=== PATIENT | male | born 1935 | race Hispanic/Latino ===

== ENCOUNTER 2018-02-09 12:16 | Inpatient (IN) | payer MEDICARE ==
[~2018-02-09] VITALS: Ht 167.6 cm; Wt 64.4 kg
[~2018-02-09 12:16] MED LIST: ACET-48 PO; GABA-531 PO; INSREG SQ; INSU100V12 SQ; LABE100T5 PO; LOVA20TA3 PO; QUIN5TAB12 PO; TRAM50TA4 PO
[2018-02-09] MEDS ORDERED: SODIUM CHLORIDE 0.9% 1000ML 1,000 ML IV ONE ×3 (13:22→17:16)
[2018-02-09] MEDS ORDERED: ONDANSETRON HCL 4 MG/2 ML VIAL ONE (13:22)
[2018-02-09] MEDS ORDERED: MORPHINE SULFATE 4 MG/1ML SYG ONE (13:22)
[2018-02-09 13:24] LABS: BASOPHILS % (AUTO) 1.1 % (0.0-5.0); HEMATOCRIT 31.4 % (42-54); LYMPHOCYTES % (AUTO) 5.5 % (21.0-51.0); MEAN CORPUSCULAR HEMOGLOBIN 30.1 pg (27.0-33.0); MEAN CORPUSCULAR HGB CONC 34.2 g/dL (32.0-36.0); MONOCYTES % (AUTO) 7.3 % (3.0-13.0); NEUTROPHILS % (AUTO) 86.1 % (40.0-77.0); PLATELET COUNT (AUTO) 290 K/uL (130-400); RED BLOOD CELL COUNT(AUTO) 3.57 MIL/uL (4.50-6.20); RED CELL DISTRIBUTION WIDTH 12.9 % (11.0-15.5); WHITE BLOOD COUNT (AUTO) 22.7 K/uL (4.8-10.8)
[2018-02-09 13:40] LABS: CREATININE 1.9 mg/dL (0.5-1.5)
[2018-02-09 13:44] LABS: BILIRUBIN,TOTAL 1.5 mg/dL (0.2-1.0); TOTAL PROTEIN, SERUM 6.6 g/dL (6.0-8.3)
[2018-02-09 15:09] LABS: BILIRUBIN,URINE Negative (NEGATIVE); COLOR,URINE Yellow (YELLOW); GLUCOSE, URINE (UA) 500 mg/dL (NEGATIVE); KETONES,URINE Trace mg/dL (NEGATIVE); LEUKOCYTE ESTERASE ,URINE Negative (NEGATIVE); NITRATE,URINE Negative (NEGATIVE); OCCULT BLOOD,URINE Trace (NEGATIVE); PROTEIN,URINE 300 (NEGATIVE)
[2018-02-09 15:10] LABS: APPEARANCE,URINE SLIGHTLY CLOUDY (CLEAR)
[2018-02-09] MEDS ORDERED: LEVOFLOXACIN 500 MG/D5W 100 ML 100 ML ONE (15:14)
[2018-02-09 15:20] LABS: WBC,URINE 0-1 /HPF (0-1)
[2018-02-09 15:21] LABS: SQUAMOUS EPITHELIAL CELL,UR Rare /HPF (0-2)
[2018-02-09 15:22] LABS: AMORPHOUS SEDIMENT,UR Few /LPF (None Seen); BACTERIA,URINE Moderate /HPF (None Seen)
[2018-02-09] MEDS: SODIUM CHLORIDE 0.9% 1000ML 1,000 ML IV SCH (15:57)
[2018-02-09] MEDS ORDERED: MORPHINE SULFATE 2 MG/ML 1ML SYG IV PRN (16:00)
[2018-02-09] MEDS ORDERED: LACTULOSE 20 GM/30 ML UDCUP PO PRN (16:00)
[2018-02-09] MEDS ORDERED: ONDANSETRON HCL 4 MG/2 ML VIAL IV PRN (16:00)
[2018-02-09] MEDS ORDERED: MAG HYDROX/AL HYDROX/SIMETH ES 30 ML SUSP UDCUP PO PRN (16:00)
[2018-02-09] MEDS ORDERED: ACETAMINOPHEN 325 MG TAB PO PRN (16:00)
[2018-02-09] MEDS ORDERED: ZOLPIDEM TARTRATE 5 MG TAB PO PRN (16:00)
[2018-02-09 17:09] LABS: HEMOGLOBIN A1C 7.7 % (4.0-6.0)
[2018-02-09 17:20] LABS: CREATINE KINASE, TOTAL 118 U/L (21-232); MYOGLOBIN 340 ng/mL (10-92); THYROID STIMULATING HORMONE 0.75 uIU/mL (0.36-3.74); TROPONIN I < 0.04 ng/mL (0.00-0.06)
[2018-02-09 17:29] LABS: % IRON SATURATION 7.9 % (30-44)
[2018-02-09 17:44] LABS: AMMONIA < 3 umol/L (11-32)
[2018-02-09 20:35] VITALS: BP 156/80
[2018-02-09] MEDS ORDERED: GLUCAGON 1MG KIT 1 MG ML IM PRN (21:45)
[2018-02-09] MEDS ORDERED: DEXTROSE 50%-WATER 50 ML DISP.SYRIN IV PRN (21:45)
[2018-02-09] MEDS: ZOSYN 3.375GM+NS 50ML 50 ML IV SCH (23:09)
[2018-02-09] MEDS ORDERED: PYRI50TA9 PO (23:35)
[2018-02-09] MEDS ORDERED: TAMS0.4C32 PO (23:35)
[2018-02-09] MEDS ORDERED: DULO30CA51 PO (23:36)
[2018-02-09] MEDS ORDERED: IBUP-2353 PO (23:41)
[2018-02-09] MEDS ORDERED: MELATONIN PO (23:43)
[2018-02-09] MEDS ORDERED: HYDROMORPHONE HCL 0.5 MG/0.5 ML ML IVP ONE (23:45)
[2018-02-09] MEDS ORDERED: HYDROMORPHONE 1 MG/1 ML AMP ONE (23:45)
[2018-02-10] VITALS (7 sets, daily range): BP systolic 130–186; BP diastolic 66–79
[2018-02-10 01:10] LABS: TROPONIN I 0.05 ng/mL (0.00-0.06)
[2018-02-10] MEDS: SODIUM CHLORIDE 0.9% 1000ML 1,000 ML IV SCH ×3 (02:50→19:11)
[2018-02-10 04:15] LABS: EOSINOPHILS % (AUTO) 0.2 % (0.0-8.0); HEMATOCRIT 26.9 % (42-54); LYMPHOCYTES % (AUTO) 11.2 % (21.0-51.0); MEAN CORPUSCULAR HEMOGLOBIN 30.6 pg (27.0-33.0); MEAN CORPUSCULAR HGB CONC 34.9 g/dL (32.0-36.0); MEAN CORPUSCULAR VOLUME 87.6 fL (79-99); NEUTROPHILS % (AUTO) 77.6 % (40.0-77.0); PLATELET COUNT (AUTO) 245 K/uL (130-400); RED BLOOD CELL COUNT(AUTO) 3.07 MIL/uL (4.50-6.20); RED CELL DISTRIBUTION WIDTH 13.1 % (11.0-15.5); WHITE BLOOD COUNT (AUTO) 20.8 K/uL (4.8-10.8)
[2018-02-10 04:25] LABS: INR 1.01 (0.85-1.15); PARTIAL THROMBOPLASTIN TIME 36.4 SEC (26.3-35.5); PROTHROMBIN TIME 10.6 SEC (9.6-11.6)
[2018-02-10 04:27] LABS: ALBUMIN 2.3 g/dL (3.5-5.0); CREATININE 1.5 mg/dL (0.5-1.5); MAGNESIUM 1.5 mg/dL (1.80-2.40); POTASSIUM 3.5 mmol/L (3.5-5.1); TOTAL PROTEIN, SERUM 5.5 g/dL (6.0-8.3)
[2018-02-10] MEDS: ZOSYN 3.375GM+NS 50ML 50 ML IV SCH ×3 (05:20→22:56)
[2018-02-10] MEDS: INSULIN HUMULIN R 100 UNIT/ML 3ML SQ SCH ×4 (05:56→21:48)
[2018-02-10 08:32] LABS: TROPONIN I 0.06 ng/mL (0.00-0.06)
[2018-02-10] MEDS: PANTOPRAZOLE SODIUM 40 MG TABLET.DR PO SCH (08:38)
[2018-02-10] MEDS: ENOXAPARIN SODIUM 40 MG/0.4 ML SYRINGE SQ SCH (08:39)
[2018-02-10] MEDS ORDERED: SODIUM CHLORIDE 0.9% 50 ML IV ONE (12:05)
[2018-02-10] MEDS ORDERED: MAGNESIUM 4GM PREMIX 100ML 100 ML IV ONE (16:45)
[2018-02-10] MEDS: TAMSULOSIN HCL 0.4 MG CAP.ER.24H PO SCH (17:18)
[2018-02-10] MEDS ORDERED: IRON SUCROSE COMPLEX 100 MG in SODIUM CHLORIDE 0.9% 50 ML IV SCH (17:30)
[2018-02-10] MEDS ORDERED: COMPOUND IV MISC 1 EACH IVSOLN MISC PRN (17:45)
[2018-02-10] MEDS ORDERED: TRAMADOL HCL 50 MG TABLET PO PRN (17:45)
[2018-02-10] MEDS: HYDRALAZINE HCL 20 MG/ML VIAL IV PRN (22:56)
[2018-02-11] VITALS (26 sets, daily range): BP systolic 122–180; BP diastolic 47–93
[2018-02-11] MEDS: SODIUM CHLORIDE 0.9% 1000ML 1,000 ML IV SCH ×4 (02:58→19:39)
[2018-02-11 04:37] LABS: HEMATOCRIT 26.9 % (42-54); MEAN CORPUSCULAR HGB CONC 34.1 g/dL (32.0-36.0); PLATELET COUNT (AUTO) 280 K/uL (130-400); RED BLOOD CELL COUNT(AUTO) 3.05 MIL/uL (4.50-6.20); RED CELL DISTRIBUTION WIDTH 13.2 % (11.0-15.5); WHITE BLOOD COUNT (AUTO) 14.4 K/uL (4.8-10.8)
[2018-02-11 04:40] LABS: CREATININE 1.5 mg/dL (0.5-1.5); MAGNESIUM 2.4 mg/dL (1.80-2.40); POTASSIUM 3.5 mmol/L (3.5-5.1)
[2018-02-11] MEDS: ZOSYN 3.375GM+NS 50ML 50 ML IV SCH ×2 (05:22→13:44)
[2018-02-11] MEDS: HYDRALAZINE HCL 20 MG/ML VIAL IV PRN (05:39)
[2018-02-11] MEDS: INSULIN HUMULIN R 100 UNIT/ML 3ML SQ SCH ×4 (05:41→20:15)
[2018-02-11] MEDS ORDERED: KETOROLAC TROMETHAMINE 30MG/ML ONE (05:50)
[2018-02-11] MEDS ORDERED: NEOSTIGMINE 5MG/5ML SYR IV ONE (06:32)
[2018-02-11] MEDS ORDERED: ONDANSETRON HCL 4 MG/2 ML VIAL ONE (06:32)
[2018-02-11] MEDS ORDERED: MIDAZOLAM HCL 1 MG/ML 2ML VIAL ONE (06:32)
[2018-02-11] MEDS ORDERED: DEXAMETHASONE SOD PHOSPHATE 10MG/ML 1ML VIAL ONE (06:32)
[2018-02-11] MEDS ORDERED: LIDOCAINE PF 2% 5ML ABBOJECT ONE (06:32)
[2018-02-11] MEDS ORDERED: PROPOFOL 10 MG/ML 20ML VIAL IV ONE (06:32)
[2018-02-11] MEDS ORDERED: ROCURONIUM 10MG/1ML SYR 10 MG/ML ML ONE (06:33)
[2018-02-11] MEDS ORDERED: FENTANYL CITRATE PF 50 MCG/1 ML 2ML VIAL ONE (06:33)
[2018-02-11] MEDS ORDERED: EPHEDRINE SULFATE 50 MG/ML AMPULE ONE (06:34)
[2018-02-11] MEDS ORDERED: GLYCOPYRROLATE 1 MG/5 ML SYRINGE ONE (06:34)
[2018-02-11] MEDS ORDERED: ROPIVACAINE 0.5% 5MG/ML 30ML IJ ONE (06:43)
[2018-02-11] MEDS ORDERED: DURAMORPH PF1 MG/ML 10ML AMP IV ONE (07:45)
[2018-02-11] MEDS ORDERED: BUPIVACAINE/EPI/PF 0.5% 30ML VIAL IJ ONE (07:45)
[2018-02-11] MEDS ORDERED: NEOMY SULF/POLYMYXIN B SULFATE 1 ML AMPUL IR ONE (07:45)
[2018-02-11] MEDS ORDERED: FERROUS FUMARATE 324 MG TABLET PO PRN (08:30)
[2018-02-11] MEDS ORDERED: KETOROLAC TROMETHAMINE 15MG/ML IV PRN (08:30)
[2018-02-11] MEDS ORDERED: LIDOCAINE HCL-MPF 1% 2ML VIAL IVP PRN (08:30)
[2018-02-11] MEDS ORDERED: DIPHENHYDRAMINE HCL 25 MG CAPSULE PO PRN (08:30)
[2018-02-11] MEDS ORDERED: POTASSIUM CHLORIDE 10% ELIXIR 20 MEQ/15 ML UDCUP PO PRN (08:30)
[2018-02-11] MEDS ORDERED: DiphenhydrAMINE HCL 50 MG/ML VIAL IVP PRN (08:30)
[2018-02-11] MEDS ORDERED: POTASSIUM CHLORIDE 20 MEQ ERTAB PO PRN (08:30)
[2018-02-11] MEDS ORDERED: OXYCODONE HCL 5 MG TAB PO PRN (08:30)
[2018-02-11] MEDS: ACETAMINOPHEN EXTRA STRENGTH 500 MG TABLET PO SCH ×3 (08:30→23:40)
[2018-02-11] MEDS ORDERED: POTASSIUM CHLORIDE 20MEQ/100ML 100 ML IV PRN (08:30)
[2018-02-11] MEDS ORDERED: MEPERIDINE-PF 25 MG/ML SYG ONE (08:55)
[2018-02-11] MEDS: ENOXAPARIN SODIUM 40 MG/0.4 ML SYRINGE SQ SCH (09:00)
[2018-02-11] MEDS: TAMSULOSIN HCL 0.4 MG CAP.ER.24H PO SCH (09:00)
[2018-02-11] MEDS: PANTOPRAZOLE SODIUM 40 MG TABLET.DR PO SCH (09:00)
[2018-02-11] MEDS: PSYLLIUM SEED 1 EACH PACKET PO SCH (11:40)
[2018-02-11] MEDS: DEXTROSE IV SCH ×2 (13:43→23:02)
[2018-02-11] MEDS: CEFAZOLIN 3 GM IV SCH ×2 (13:43→23:02)
[2018-02-11] MEDS ORDERED: ACETAMINOPHEN EXTRA STRENGTH 500 MG TABLET PO PRN (14:45)
[2018-02-11] MEDS ORDERED: IBUPROFEN 200 MG TAB PO PRN (14:45)
[2018-02-11] MEDS: UNASYN 1.5GM+NS 100ML 100 ML IV SCH ×2 (17:22→23:35)
[2018-02-11] MEDS ORDERED: CEFTRIAXONE SODIUM 2 GM VIAL IVP SCH (17:45)
[2018-02-11] MEDS: IRON SUCROSE COMPLEX 100 MG in SODIUM CHLORIDE 0.9% 50 ML IV SCH (19:39)
[2018-02-11] MEDS: MELATONIN PO SCH (19:39)
[2018-02-11] MEDS: LABETALOL HCL 100 MG TABLET PO SCH (19:40)
[2018-02-11] MEDS: OXYCODONE HCL 5 MG TAB PO PRN ×2 (19:40→23:40)
[2018-02-11] MEDS: INSULIN GLARGINE 100 UNITS/ML 10 ML VIAL SQ SCH (20:16)
[2018-02-12] MEDS: SODIUM CHLORIDE 0.9% 1000ML 1,000 ML IV SCH (03:29)
[2018-02-12 03:32] VITALS: BP 125/51
[2018-02-12 04:23] LABS: HEMATOCRIT 22.4 % (42-54); MEAN CORPUSCULAR HEMOGLOBIN 29.8 pg (27.0-33.0); MEAN CORPUSCULAR VOLUME 87.8 fL (79-99); PLATELET COUNT (AUTO) 228 K/uL (130-400); RED BLOOD CELL COUNT(AUTO) 2.56 MIL/uL (4.50-6.20); RED CELL DISTRIBUTION WIDTH 13.2 % (11.0-15.5); WHITE BLOOD COUNT (AUTO) 18.6 K/uL (4.8-10.8)
[2018-02-12 04:31] LABS: CREATININE 1.7 mg/dL (0.5-1.5); CRP QUANTITATIVE 59.8 mg/L (0.00-9.0); POTASSIUM 3.5 mmol/L (3.5-5.1)
[2018-02-12] MEDS: UNASYN 1.5GM+NS 100ML 100 ML IV SCH ×2 (05:21→12:16)
[2018-02-12] MEDS: INSULIN HUMULIN R 100 UNIT/ML 3ML SQ SCH ×4 (05:21→21:00)
[2018-02-12 07:30] VITALS: BP 140/58
[2018-02-12] MEDS: ACETAMINOPHEN EXTRA STRENGTH 500 MG TABLET PO SCH ×2 (09:00→15:46)
[2018-02-12] MEDS ORDERED: CEFTRIAXONE SODIUM 2 GM VIAL IVP SCH (09:00)
[2018-02-12] MEDS: LISINOPRIL 5 MG TABLET PO SCH (09:01)
[2018-02-12] MEDS: IRON SUCROSE COMPLEX 100 MG in SODIUM CHLORIDE 0.9% 50 ML IV SCH (09:01)
[2018-02-12] MEDS: PYRIDOXINE HCL 50 MG TABLET PO SCH (09:02)
[2018-02-12] MEDS: LABETALOL HCL 100 MG TABLET PO SCH ×2 (09:02→21:30)
[2018-02-12] MEDS: CALCIUM CARBONATE 500 MG TABLET PO PRN ×2 (09:02→21:40)
[2018-02-12] MEDS: DULOXETINE HCL 30 MG CAP PO SCH (09:02)
[2018-02-12] MEDS: PANTOPRAZOLE SODIUM 40 MG TABLET.DR PO SCH (09:02)
[2018-02-12] MEDS: TRAMADOL HCL 50 MG TABLET PO SCH (09:03)
[2018-02-12] MEDS: ENOXAPARIN SODIUM 40 MG/0.4 ML SYRINGE SQ SCH (09:03)
[2018-02-12] MEDS: TAMSULOSIN HCL 0.4 MG CAP.ER.24H PO SCH (09:03)
[2018-02-12] MEDS ORDERED: POTASSIUM CHLORIDE 20 MEQ ERTAB PO SCH (10:00)
[2018-02-12 12:00] VITALS: BP 125/56
[2018-02-12] MEDS ORDERED: SODIUM CHLORIDE 0.9% 250 ML IV ONE (12:06)
[2018-02-12] MEDS: PSYLLIUM SEED 1 EACH PACKET PO SCH (12:17)
[2018-02-12] MEDS: AMOXICILLIN 500 MG CAPSULE PO SCH ×2 (13:16→21:29)
[2018-02-12 16:17] VITALS: BP 113/61
[2018-02-12 19:00] VITALS: BP 128/55
[2018-02-12] MEDS: MELATONIN PO SCH (21:00)
[2018-02-12] MEDS: INSULIN GLARGINE 100 UNITS/ML 10 ML VIAL SQ SCH (21:40)
[2018-02-12 23:05] VITALS: BP 123/63
[2018-02-13] MEDS: ACETAMINOPHEN EXTRA STRENGTH 500 MG TABLET PO SCH ×3 (00:22→17:09)
[2018-02-13 03:00] VITALS: BP 137/61
[2018-02-13] MEDS: AMOXICILLIN 500 MG CAPSULE PO SCH ×2 (04:58→12:14)
[2018-02-13] MEDS: INSULIN HUMULIN R 100 UNIT/ML 3ML SQ SCH ×3 (05:36→16:30)
[2018-02-13 06:07] LABS: BASOPHILS % (AUTO) 1.2 % (0.0-5.0); EOSINOPHILS % (AUTO) 2.5 % (0.0-8.0); HEMATOCRIT 26.5 % (42-54); LYMPHOCYTES % (AUTO) 11.5 % (21.0-51.0); MEAN CORPUSCULAR HEMOGLOBIN 29.7 pg (27.0-33.0); MEAN CORPUSCULAR HGB CONC 33.9 g/dL (32.0-36.0); MEAN CORPUSCULAR VOLUME 87.6 fL (79-99); NEUTROPHILS % (AUTO) 77.8 % (40.0-77.0); PLATELET COUNT (AUTO) 229 K/uL (130-400); RED BLOOD CELL COUNT(AUTO) 3.03 MIL/uL (4.50-6.20); RED CELL DISTRIBUTION WIDTH 13.7 % (11.0-15.5); WHITE BLOOD COUNT (AUTO) 14.2 K/uL (4.8-10.8)
[2018-02-13 06:13] LABS: CREATININE 1.6 mg/dL (0.5-1.5); POTASSIUM 3.7 mmol/L (3.5-5.1)
[2018-02-13 07:46] VITALS: BP 130/63
[2018-02-13] MEDS ORDERED: BISACODYL 5 MG TABLET.DR PO PRN (08:30)
[2018-02-13] MEDS: LISINOPRIL 5 MG TABLET PO SCH (08:52)
[2018-02-13] MEDS: TAMSULOSIN HCL 0.4 MG CAP.ER.24H PO SCH (08:52)
[2018-02-13] MEDS: PYRIDOXINE HCL 50 MG TABLET PO SCH (08:52)
[2018-02-13] MEDS: DULOXETINE HCL 30 MG CAP PO SCH (08:52)
[2018-02-13] MEDS: PANTOPRAZOLE SODIUM 40 MG TABLET.DR PO SCH (08:52)
[2018-02-13] MEDS: TRAMADOL HCL 50 MG TABLET PO SCH (08:52)
[2018-02-13] MEDS: LABETALOL HCL 100 MG TABLET PO SCH (08:52)
[2018-02-13] MEDS: CALCIUM CARBONATE 500 MG TABLET PO PRN (08:53)
[2018-02-13] MEDS: ENOXAPARIN SODIUM 40 MG/0.4 ML SYRINGE SQ SCH (08:54)
[2018-02-13] MEDS: OXYCODONE HCL 5 MG TAB PO PRN (10:14)
[2018-02-13 11:38] VITALS: BP 130/55
[2018-02-13] MEDS: PSYLLIUM SEED 1 EACH PACKET PO SCH (12:14)
[2018-02-13 16:21] VITALS: BP 140/62
[2018-02-14] MEDS ORDERED: BISACODYL 10 MG SUPP.RECT RC PRN (08:30)
== END 2018-02-13 22:39 | DRG 480 ==
LOC: EDH 12:16 → EDHIP 15:57 → 4AH 20:30
PROVIDERS: ADMIT Internal Medicine; ATTEND Internal Medicine
PROC: 0QS606Z Reposition Right Upper Femur with Intramedullary Internal Fixation Device, Open Approach (ICD-10-PCS; principal; 2018-02-11 07:16)
PROC: 30233N0 Transfusion of Autologous Red Blood Cells into Peripheral Vein, Percutaneous Approach (ICD-10-PCS; 2018-02-12)
DX: S72.141A Displaced intertrochanteric fracture of right femur, initial encounter for closed fracture (principal); G93.41 Metabolic encephalopathy; N17.9 Acute kidney failure, unspecified; N39.0 Urinary tract infection, site not specified; R65.10 Systemic inflammatory response syndrome (SIRS) of non-infectious origin without acute organ dysfunction; I69.354 Hemiplegia and hemiparesis following cerebral infarction affecting left non-dominant side; E11.65 Type 2 diabetes mellitus with hyperglycemia; I45.9 Conduction disorder, unspecified; N18.3 Chronic kidney disease, stage 3 (moderate); E11.22 Type 2 diabetes mellitus with diabetic chronic kidney disease; D50.9 Iron deficiency anemia, unspecified; E83.42 Hypomagnesemia; F32.9 Major depressive disorder, single episode, unspecified; E78.00 Pure hypercholesterolemia, unspecified; E78.5 Hyperlipidemia, unspecified; E11.21 Type 2 diabetes mellitus with diabetic nephropathy; G47.00 Insomnia, unspecified; N18.9 Chronic kidney disease, unspecified; D63.1 Anemia in chronic kidney disease; B95.2 Enterococcus as the cause of diseases classified elsewhere; I12.9 Hypertensive chronic kidney disease with stage 1 through stage 4 chronic kidney disease, or unspecified chronic kidney disease; I25.10 Atherosclerotic heart disease of native coronary artery without angina pectoris; Z96.649 Presence of unspecified artificial hip joint; Z83.3 Family history of diabetes mellitus; W18.39XA Other fall on same level, initial encounter; Z95.0 Presence of cardiac pacemaker; Z79.4 Long term (current) use of insulin; Z79.899 Other long term (current) drug therapy; Y93.89 Activity, other specified; Y92.098 Other place in other non-institutional residence as the place of occurrence of the external cause; Y99.8 Other external cause status
CPT/HCPCS: 36415; 36430; 70450; 71045; 72125; 73502; 76000; 76770; 80048; 80053; 80339; 81001; 82140; 82550; 82948; 83036; 83540; 83550; 83605; 83690; 83735; 83874; 84443; 84484; 85025; 85027; 85610; 85730; 86140; 86850; 86900; 86901; 86922; 87040; 87077; 87088; 87186; 93005; 97039; A4218; J0295; J0360; J0690; J0696; J1100; J1170; J1650; J1756; J1815; J1885; J1956; J2001; J2175; J2250; J2270; J2274; J2405; J2543; J2704; J2710; J2795; J3010; J3475; J3490; J7030; P9016; Q2038

== ENCOUNTER 2018-02-26 06:17 | Emergency (ER) | payer MEDICARE ==
[~2018-02-26 06:17] MED LIST changes: +DULO30CA51 PO; -GABA-531 PO; +IBUP-2353 PO; -INSREG SQ; +MELATONIN PO; +PYRI50TA9 PO; +TAMS0.4C32 PO; -TRAM50TA4 PO
[2018-02-26 07:10] LABS: BASOPHILS % (AUTO) 0.7 % (0.0-5.0); HEMATOCRIT 27.4 % (42-54); MEAN CORPUSCULAR HEMOGLOBIN 29.5 pg (27.0-33.0); MEAN CORPUSCULAR HGB CONC 32.9 g/dL (32.0-36.0); MEAN CORPUSCULAR VOLUME 89.7 fL (79-99); MONOCYTES % (AUTO) 4.9 % (3.0-13.0); NEUTROPHILS % (AUTO) 83.4 % (40.0-77.0); PLATELET COUNT (AUTO) 282 K/uL (130-400); RED BLOOD CELL COUNT(AUTO) 3.06 MIL/uL (4.50-6.20); WHITE BLOOD COUNT (AUTO) 15.1 K/uL (4.8-10.8)
[2018-02-26 07:13] LABS: APPEARANCE,URINE Clear (CLEAR); BILIRUBIN,URINE Negative (NEGATIVE); COLOR,URINE Yellow (YELLOW); GLUCOSE, URINE (UA) >=1000 mg/dL (NEGATIVE); KETONES,URINE Trace mg/dL (NEGATIVE); LEUKOCYTE ESTERASE ,URINE Negative (NEGATIVE); NITRATE,URINE Negative (NEGATIVE); OCCULT BLOOD,URINE Negative (NEGATIVE); PH,URINE 5.5 (5.0-8.0); PROTEIN,URINE 300 (NEGATIVE)
[2018-02-26 07:13] LABS: CREATININE 1.5 mg/dL (0.5-1.5)
[2018-02-26 07:19] LABS: ALBUMIN 2.3 g/dL (3.5-5.0); BILIRUBIN,TOTAL 0.6 mg/dL (0.2-1.0); TOTAL PROTEIN, SERUM 5.3 g/dL (6.0-8.3)
[2018-02-26 07:33] LABS: RBC,URINE 0-1 /HPF (0-1); WBC,URINE 0-1 /HPF (0-1)
[2018-02-26 07:34] LABS: BACTERIA,URINE None Seen /HPF (None Seen)
[2018-02-26 07:35] LABS: SQUAMOUS EPITHELIAL CELL,UR 0-2 /HPF (0-2)
[2018-02-26] MEDS ORDERED: INSULIN HUMULIN R 100 UNIT/ML 3ML ONE (07:52)
== END 2018-02-26 10:00 | disposition home or self-care (01) ==
LOC: EDH 06:17
DX: E11.65 Type 2 diabetes mellitus with hyperglycemia (principal); H11.30 Conjunctival hemorrhage, unspecified eye; I10 Essential (primary) hypertension; Z86.73 Personal history of transient ischemic attack (TIA), and cerebral infarction without residual deficits; Z79.4 Long term (current) use of insulin; Z87.81 Personal history of (healed) traumatic fracture
CPT/HCPCS: 36415; 73502; 80053; 81001; 82948 ×2; 85025; 96372; 99285; J1815

== ENCOUNTER 2018-04-29 07:06 | Emergency (ER) | payer MEDICARE ==
[2018-04-29 07:30] LABS: BASOPHILS % (AUTO) 0.6 % (0.0-5.0); EOSINOPHILS % (AUTO) 2.1 % (0.0-8.0); HEMATOCRIT 39.8 % (42-54); MEAN CORPUSCULAR HEMOGLOBIN 28.7 pg (27.0-33.0); MEAN CORPUSCULAR HGB CONC 32.3 g/dL (32.0-36.0); MEAN CORPUSCULAR VOLUME 88.9 fL (79-99); MONOCYTES % (AUTO) 6.6 % (3.0-13.0); NEUTROPHILS % (AUTO) 61.7 % (40.0-77.0); PLATELET COUNT (AUTO) 240 K/uL (130-400); RED BLOOD CELL COUNT(AUTO) 4.47 MIL/uL (4.50-6.20); RED CELL DISTRIBUTION WIDTH 13.4 % (11.0-15.5)
[2018-04-29 07:56] LABS: CREATININE 1.5 mg/dL (0.5-1.5); POTASSIUM 3.8 mmol/L (3.5-5.1)
[2018-04-29 08:03] LABS: BILIRUBIN,TOTAL 0.4 mg/dL (0.2-1.0); TOTAL PROTEIN, SERUM 6.3 g/dL (6.0-8.3)
[2018-04-29 08:40] LABS: APPEARANCE,URINE Clear (CLEAR); BILIRUBIN,URINE Negative (NEGATIVE); COLOR,URINE Yellow (YELLOW); GLUCOSE, URINE (UA) TRACE mg/dL (NEGATIVE); KETONES,URINE Negative (NEGATIVE); LEUKOCYTE ESTERASE ,URINE Negative (NEGATIVE); NITRATE,URINE Negative (NEGATIVE); OCCULT BLOOD,URINE Negative (NEGATIVE); PH,URINE 5.5 (5.0-8.0); PROTEIN,URINE 300 (NEGATIVE)
[2018-04-29 09:02] LABS: BACTERIA,URINE Rare /HPF (None Seen); MUCUS,URINE Rare LPF (None Seen); RBC,URINE 0-1 /HPF (0-1); SQUAMOUS EPITHELIAL CELL,UR Rare /HPF (0-2); WBC,URINE 0-1 /HPF (0-1)
== END 2018-04-29 09:18 | disposition home or self-care (01) ==
LOC: EDH 07:06
DX: E11.649 Type 2 diabetes mellitus with hypoglycemia without coma (principal); R41.82 Altered mental status, unspecified; I10 Essential (primary) hypertension; Z95.1 Presence of aortocoronary bypass graft; Z86.73 Personal history of transient ischemic attack (TIA), and cerebral infarction without residual deficits; Z88.0 Allergy status to penicillin; Z79.4 Long term (current) use of insulin
CPT/HCPCS: 36415; 80053; 81001; 82948; 84484; 85025; 93005

== ENCOUNTER → 2018-11-05 | Outpatient (CLI) | payer MEDICARE ==
[~2018-11-05] MED LIST changes: -DULO30CA51 PO; +DULO30CA52 PO; +PYRI50TA13 PO; -PYRI50TA9 PO
== END | disposition home or self-care (01) ==
LOC: SHCH 07:40
PROVIDERS: ATTEND Internal Medicine Cardiovascular Disease
DX: I77.4 Celiac artery compression syndrome (principal); K55.059 Acute (reversible) ischemia of intestine, part and extent unspecified; K55.1 Chronic vascular disorders of intestine
CPT/HCPCS: 93975

== ENCOUNTER → 2018-11-13 | Outpatient (CLI) | payer MEDICARE ==
[~2018-11-13] VITALS: Ht 167.6 cm; Wt 59.0 kg
[~2018-11-13] MED LIST changes: +REGADENOSON 0.4 MG/5 ML PF SYG IVP SCH
== END | disposition home or self-care (01) ==
LOC: SHCH 08:20
PROVIDERS: ATTEND Internal Medicine Cardiovascular Disease
DX: I25.10 Atherosclerotic heart disease of native coronary artery without angina pectoris (principal)
CPT/HCPCS: 78452; 93017; 96374; A9500 ×2; J2785

== ENCOUNTER 2019-01-01 06:18 | Day surgery (SDC) | payer MEDICARE ==
[2018-12-28 14:50] LABS: BASOPHILS % (AUTO) 0.5 % (0.0-5.0); HEMATOCRIT 37.1 % (42-54); LYMPHOCYTES % (AUTO) 29.7 % (21.0-51.0); MEAN CORPUSCULAR HEMOGLOBIN 30.2 pg (27.0-33.0); MEAN CORPUSCULAR HGB CONC 33.3 g/dL (32.0-36.0); MEAN CORPUSCULAR VOLUME 90.8 fL (79-99); MONOCYTES % (AUTO) 5.3 % (3.0-13.0); NEUTROPHILS % (AUTO) 62.5 % (40.0-77.0); PLATELET COUNT (AUTO) 213 K/uL (130-400); RED BLOOD CELL COUNT(AUTO) 4.08 MIL/uL (4.50-6.20); RED CELL DISTRIBUTION WIDTH 13.4 % (11.0-15.5); WHITE BLOOD COUNT (AUTO) 13.6 K/uL (4.8-10.8)
[2018-12-28 14:52] LABS: APPEARANCE,URINE Clear (CLEAR); BILIRUBIN,URINE Negative (NEGATIVE); COLOR,URINE Yellow (YELLOW); GLUCOSE, URINE (UA) 500 mg/dL (NEGATIVE); KETONES,URINE Negative (NEGATIVE); LEUKOCYTE ESTERASE ,URINE Negative (NEGATIVE); NITRATE,URINE Negative (NEGATIVE); OCCULT BLOOD,URINE Negative (NEGATIVE); PROTEIN,URINE 300 mg/dL (NEGATIVE); UROBILINOGEN,URINE 0.2 mg/dL (0.2-1.0)
[2018-12-28 15:03] LABS: CREATININE 1.9 mg/dL (0.5-1.5); POTASSIUM 5.5 mmol/L (3.5-5.1)
[2018-12-28 15:04] LABS: RBC,URINE 0-1 /HPF (0-1); WBC,URINE 0-1 /HPF (0-1)
[2018-12-28 15:05] LABS: BACTERIA,URINE None Seen /HPF (None Seen); MUCUS,URINE Few LPF (None Seen); SQUAMOUS EPITHELIAL CELL,UR 0-2 /HPF (0-2)
[2018-12-28 15:29] LABS: INR 0.97 (0.85-1.15); PARTIAL THROMBOPLASTIN TIME 33.7 SEC (26.3-35.5); PROTHROMBIN TIME 10.2 SEC (9.6-11.6)
[2018-12-28 15:40] VITALS: BP 186/83
--- NOTE | 2018-12-31 12:12 | NUR ---
CALLED [facility] AND REPORTED UA WITH PROTEIN AND GLUCOSE, WBC 13.6 , HEMOGLOBIN LEVEL OF 12.3 ,POTASSIUM OF 5.5, BUN 43, WET WHEELER 1.9, NEW ORDERS FOR BMP IN THE MORNING OF PROCEDURE AND NS AT 125CC AND HOUR.
[~2019-01-01] VITALS: Ht 161.3 cm; Wt 63.4 kg
[2019-01-01] VITALS (25 sets, daily range): BP systolic 68–179; BP diastolic 53–76
[~2019-01-01 06:18] MED LIST changes: -ACET-48 PO; +CLOP75TA14 PO; -DULO30CA52 PO; +ERGO2500 PO; +GABA-531 PO; -IBUP-2353 PO; +INSU100I21 SQ; -INSU100V12 SQ; -LABE100T5 PO; -MELATONIN PO; +METO-408 PO; +MULT-1192 PO; -PYRI50TA13 PO; -REGADENOSON 0.4 MG/5 ML PF SYG IVP SCH; +SODIUM CHLORIDE 0.9% 1000ML 1,000 ML IV SCH; +SODIUM CHLORIDE 0.9% 500ML 500 ML IV SCH; +TRAM50TA4 PO
--- NOTE | 2019-01-01 06:40 | NUR ---
PATIENT ARRIVED PATIENT ARRIVED TO DAY PATIENT ACCOMPANIED BY DAUGHTER. PATIENT AAOX3, RESPIRATIONS UNLABORED, VITAL SIGNS STABLE. PROCEDURE VERIFIED AND CONFIRMED WITH PATIENT. HOSPITAL ROUTINE EXPLAINED TO PATIENT AND PATIENT'S FAMILY, BOTH VERBALIZED UNDERSTANDING.
[2019-01-01 07:11] LABS: CREATININE 1.6 mg/dL (0.5-1.5); POTASSIUM 5.4 mmol/L (3.5-5.1)
[2019-01-01] MEDS ORDERED: MEGE40L PO (08:19)
[2019-01-01] MEDS ORDERED: CHOL500050 PO (08:19)
[2019-01-01] MEDS ORDERED: LORA10TA7 PO (08:19)
[2019-01-01] MEDS ORDERED: MEGESTROL (08:19)
[2019-01-01] MEDS ORDERED: IODIXANOL 320 MG/ML 100 ML VIAL ONE (13:47)
[2019-01-01] MEDS ORDERED: NITROGLYCERIN 5 MG/ML 10 ML VIAL IV ONE (13:47)
[2019-01-01] MEDS ORDERED: SODIUM BICARB 50MEQ 50ML VIAL ONE (13:47)
[2019-01-01] MEDS ORDERED: MEPERIDINE-PF 25 MG/ML SYG ONE (13:48)
[2019-01-01] MEDS ORDERED: MIDAZOLAM HCL 1 MG/ML 2ML VIAL ONE (13:48)
[2019-01-01] MEDS ORDERED: HEPARIN SODIUM 1000UNIT/ML 10ML VIAL ONE (13:48)
[2019-01-01] MEDS ORDERED: LIDOCAINE HCL 2% 20ML ONE (13:48)
--- NOTE | 2019-01-01 13:50 | NUR ---
PATIENT TRANSFERRED PATIENT TAKEN TO COST REPORT CLERK VIA BED BY RONALDO ORTEZ. FAMILY MEMBERS INSTRUCTED TO WAIT IN ROOM SO THAT THEY CAN SPEAK WITH DR MANZO FOLLOWING THE PROCEDURE.
--- NOTE | 2019-01-01 14:15 | NUR ---
handoff communication REPORT GIVEN TO NIELS BHANDARI RN USING SBAR. PATIENT CURRENTLY IN MANAGER OF MANUFACTURING FOR PROCEDURE.
[2019-01-01] MEDS ORDERED: HYDRALAZINE HCL 20 MG/ML VIAL ONE (14:29)
[2019-01-01] MEDS ORDERED: LABETALOL HCL 5 MG/ML 20ML VIAL IV ONE (14:35)
[2019-01-01] MEDS ORDERED: SODIUM CHLORIDE 0.9% 1000ML 1,000 ML IV SCH (14:59)
[2019-01-01] MEDS ORDERED: GLUCAGON 1MG KIT 1 MG ML IM PRN (15:00)
[2019-01-01] MEDS ORDERED: DEXTROSE 50%-WATER 50 ML DISP.SYRIN IV PRN (15:00)
--- NOTE | 2019-01-01 15:20 | NUR ---
PROCEDURE RECEIVED PT FROM CHEMICAL SALES REPRESENTATIVE STAFF. PT HAS 6FR SHEATH IN PLACE TO RIGHT BRACHIAL. SOFT TO TOUCH. NO BLEEDING, OOZING NOTED. PTT WILL BE DRAWN TO ESTABLISH RESULT TO SEE IF ABLE TO PULL TO LINE. INSTRUCTED PT ON IMPORTANCE OF KEEPING RIGHT ARM STRAIGHT AND NOT TO BEND IT. VERBALIZED UNDERSTANDING.
[2019-01-01 15:54] LABS: INR 1.03 (0.85-1.15); PARTIAL THROMBOPLASTIN TIME 72.7 SEC (26.3-35.5); PROTHROMBIN TIME 10.8 SEC (9.6-11.6)
[2019-01-01] MEDS ORDERED: INSULIN HUMULIN R 100 UNIT/ML 3ML SQ SCH (16:30)
[2019-01-01 16:49] LABS: INR 1.02 (0.85-1.15); PARTIAL THROMBOPLASTIN TIME 47.3 SEC (26.3-35.5); PROTHROMBIN TIME 10.7 SEC (9.6-11.6)
[2019-01-01] MEDS ORDERED: ATROPINE SULFATE 0.1 MG/ML 10 ML SYG IVP ONE (17:17)
--- NOTE | 2019-01-01 21:32 | NUR ---
DISCHARGE PRESCRIPTION GIVEN TO PTS DAUGHTER ALONG WITH DISCHARGE INSTRUCTIONS. PRESSURE DRSG IN PLACE PER DR. MANZO. PT TO REMOVE PRESSURE DRSG TOMORROW. BOTH PT AND DAUGHTER UNDERSTAND. SITE TO RIGHT ARM SOFT TO TOUCH. NO BLEEDING, OOZING NOTED TO SITE. INSTRUCTED ON IMPORTANCE OF NOT LIFTING ANYTHING OVER 5 POUNDS OR USING THAT ARM FOR STRENUOUS ACTIVITY. BOTH VERBALIZED UNDERSTANDING. NO OTHER QUESTIONS AT THIS TIME.
== END 2019-01-01 21:35 | disposition home or self-care (01) ==
LOC: DAH 06:18
PROVIDERS: ATTEND Internal Medicine Cardiovascular Disease
DX: K55.059 Acute (reversible) ischemia of intestine, part and extent unspecified (principal); E11.51 Type 2 diabetes mellitus with diabetic peripheral angiopathy without gangrene; I10 Essential (primary) hypertension; I49.5 Sick sinus syndrome; I25.10 Atherosclerotic heart disease of native coronary artery without angina pectoris; I73.9 Peripheral vascular disease, unspecified; Z95.5 Presence of coronary angioplasty implant and graft; Z95.0 Presence of cardiac pacemaker; Z90.49 Acquired absence of other specified parts of digestive tract; Z79.899 Other long term (current) drug therapy; Z88.8 Allergy status to other drugs, medicaments and biological substances; Z86.73 Personal history of transient ischemic attack (TIA), and cerebral infarction without residual deficits; Z88.0 Allergy status to penicillin
CPT/HCPCS: 36245 ×2; 36415 ×2; 71045; 75726 ×2; 80048 ×2; 81001; 82948 ×2; 85025; 85610 ×3; 85730 ×3; 93005; 96361; 96375; A4215; A4216; A4221; A4222; A4223 ×2; A4606; C1769; C1887; C1894; J0360; J1644 ×2; J3490 ×4; J7030 ×2; Q9967; 36251; J0461; J2175; J2250

== ENCOUNTER → 2019-04-01 | Outpatient (CLI) | payer MEDICARE ==
[~2019-04-01] MED LIST changes: +CHOL500050 PO; +LORA10TA7 PO; +MEGE40L PO; -METO-408 PO; -QUIN5TAB12 PO; -SODIUM CHLORIDE 0.9% 1000ML 1,000 ML IV SCH; -SODIUM CHLORIDE 0.9% 500ML 500 ML IV SCH
[2019-04-01 10:30] LABS: BASOPHILS % (AUTO) 0.4 % (0.0-5.0); EOSINOPHILS % (AUTO) 4.3 % (0.0-8.0); HEMATOCRIT 32.7 % (42-54); MEAN CORPUSCULAR HEMOGLOBIN 29.6 pg (27.0-33.0); MEAN CORPUSCULAR HGB CONC 32.7 g/dL (32.0-36.0); MEAN CORPUSCULAR VOLUME 90.6 fL (79-99); MONOCYTES % (AUTO) 6.8 % (3.0-13.0); NEUTROPHILS % (AUTO) 60.2 % (40.0-77.0); PLATELET COUNT (AUTO) 239 K/uL (130-400); WHITE BLOOD COUNT (AUTO) 10.6 K/uL (4.8-10.8)
[2019-04-01 10:40] LABS: CREATININE 1.8 mg/dL (0.5-1.5); POTASSIUM 5.1 mmol/L (3.5-5.1)
[2019-04-01 10:42] LABS: RED BLOOD CELL COUNT(AUTO) 3.61 MIL/uL (4.50-6.20)
[2019-04-01 10:49] LABS: INR 1.03 (0.85-1.15); PROTHROMBIN TIME 10.8 SEC (9.6-11.6)
== END | disposition home or self-care (01) ==
LOC: DAH 10:00 → EDSTATUS 04-03 08:00
PROVIDERS: ATTEND Internal Medicine Cardiovascular Disease
DX: I25.5 Ischemic cardiomyopathy (principal)
CPT/HCPCS: 36415; 80048; 85025; 85610; 85730; 93005

== ENCOUNTER 2019-04-23 06:04 | Observation (INO) | payer MEDICARE ==
[2019-04-19 09:43] VITALS: BP 152/69
[2019-04-19 09:47] LABS: BASOPHILS % (AUTO) 0.3 % (0.0-5.0); EOSINOPHILS % (AUTO) 2.3 % (0.0-8.0); MEAN CORPUSCULAR HEMOGLOBIN 29.7 pg (27.0-33.0); MEAN CORPUSCULAR HGB CONC 31.9 g/dL (32.0-36.0); MEAN CORPUSCULAR VOLUME 93.3 fL (79-99); MONOCYTES % (AUTO) 6.4 % (3.0-13.0); NEUTROPHILS % (AUTO) 63.8 % (40.0-77.0); PLATELET COUNT (AUTO) 250 K/uL (130-400); RED BLOOD CELL COUNT(AUTO) 3.43 MIL/uL (4.50-6.20); RED CELL DISTRIBUTION WIDTH 13.2 % (11.0-15.5); WHITE BLOOD COUNT (AUTO) 13.7 K/uL (4.8-10.8)
[2019-04-19 10:01] LABS: INR 1.04 (0.85-1.15); PARTIAL THROMBOPLASTIN TIME 31.4 SEC (26.3-35.5); PROTHROMBIN TIME 10.9 SEC (9.6-11.6)
[2019-04-19 10:26] LABS: CREATININE 2.1 mg/dL (0.5-1.5); POTASSIUM 5.2 mmol/L (3.5-5.1)
--- NOTE | 2019-04-22 08:37 | NUR ---
ABNORMAL LABS POTASSIUM 5.2, BUN 34, CREAT 2.1, WBC 13.7, H/H 10.2/32.0 REPORTED TO GREG BUSH. NO FURTHER ORDERS GIVEN, MAY PROCEED WITH PLANNED PROCEDURE.
[2019-04-23] VITALS (15 sets, daily range): BP systolic 124–201; BP diastolic 54–93
[~2019-04-23] VITALS: Ht 162.6 cm; Wt 68.7 kg
[~2019-04-23 06:04] MED LIST changes: -ERGO2500 PO; -GABA-531 PO; +LABE200T5 PO; -MULT-1192 PO; -TRAM50TA4 PO
[2019-04-23] MEDS ORDERED: VANCOMYCIN 1GM+NS 250ML 250 ML IV ONE ×2 (07:15→07:24)
[2019-04-23] MEDS ORDERED: SODIUM CHLORIDE 0.9% 1000ML 1,000 ML IV ONE (07:20)
[2019-04-23] MEDS ORDERED: IOHEXOL-350 50ML VIAL IV ONE (07:23)
[2019-04-23] MEDS ORDERED: LIDOCAINE HCL 1% MDV 50ML VIAL ONE (07:24)
[2019-04-23] MEDS ORDERED: BUPIVACAINE/PF 0.25% 30ML VIAL IJ ONE (07:25)
[2019-04-23] MEDS ORDERED: MIDAZOLAM HCL 1 MG/ML 2ML VIAL ONE ×2 (07:30→08:04)
[2019-04-23] MEDS ORDERED: MEPERIDINE-PF 25 MG/ML SYG ONE ×2 (07:30→08:04)
[2019-04-23] MEDS ORDERED: THROMBIN-JMI 5000 UNIT/VIAL TP ONE (08:27)
[2019-04-23] MEDS ORDERED: OCTYL 2-CYANOACRYLATE 1 EACH TP ONE (09:09)
[2019-04-23] MEDS: SODIUM CHLORIDE 0.9% 1000ML 1,000 ML IV SCH (09:45)
[2019-04-23] MEDS ORDERED: ONDANSETRON HCL 4 MG/2 ML VIAL IV PRN (09:45)
[2019-04-23] MEDS ORDERED: ACETAMINOPHEN-CODEINE 300/30MG TAB PO PRN ×2 (09:45)
[2019-04-23] MEDS ORDERED: DEXTROSE 50%-WATER 50 ML DISP.SYRIN IV PRN (09:45)
[2019-04-23] MEDS ORDERED: HYDRALAZINE HCL 20 MG/ML VIAL IM PRN (10:15)
[2019-04-23] MEDS ORDERED: HYDRALAZINE HCL 20 MG/ML VIAL IV PRN (10:30)
[2019-04-23] MEDS: LABETALOL HCL 200 MG TABLET PO SCH ×2 (10:45→18:00)
[2019-04-23] MEDS: INSULIN HUMULIN R 100 UNIT/ML 3ML SQ SCH ×5 (11:04→21:00)
[2019-04-23] MEDS ORDERED: MAGNESIUM 2GM PREMIX 50ML 50 ML IV PRN (11:45)
--- NOTE | 2019-04-23 11:57 | NUR ---
GAVE REPORT TO CINDA CHAMBERLAIN RN , NO CONCERNS VOICED
--- NOTE | 2019-04-23 11:57 | NUR ---
RECEIVED REPORT FROM REMA PATRICK RN AT BEDSIDE. DRESSING TO LEFT ARM DRY/INTACT, SLING IN PLACE. PATIENT DENIES ANY PAIN AT THIS TIME. FAMILY MEMBERS AT BEDSIDE.
[2019-04-23] MEDS ORDERED: TRAMADOL HCL 50 MG TABLET ONE (12:12)
--- NOTE | 2019-04-23 12:15 | NUR ---
PATIENT C/O PAIN TO LEFT SHOULDER, RATES PAIN OF 6 OUT OF 10. ADMINISTERED NORCO PO, WILL CONTINUE TO MONITOR PATIENT.
--- NOTE | 2019-04-23 13:15 | NUR ---
PATIENT VERBALIZES RELIEF OF PAIN TO LEFT SHOULDER, RATE PAIN AT 2 OUT OF 10
--- NOTE | 2019-04-23 14:45 | NUR ---
REPORT GIVEN TO CRISTELA HURTADO RN AT BEDSIDE. PATIENT DENIES ANY PAIN, DRESSING TO LEFT UPPER CHEST WALL DRY/INTACT, SLING IN PLACE. FAMILY AT BEDSIDE.
[2019-04-23] MEDS ORDERED: TRAMADOL HCL 50 MG TABLET PO PRN (15:30)
[2019-04-23] MEDS ORDERED: MORPHINE SULFATE 2 MG/ML 1ML SYG IVP PRN (15:30)
--- NOTE | 2019-04-23 15:45 | NUR ---
PT RESTING COMFORTABLY WITH FAMILY AT BEDSIDE, DRESSING DRY AND INTACT AND V/S ARE STABLE, WILL CONTINUE TO MONITOR PATIENT.
--- NOTE | 2019-04-23 17:08 | NUR ---
REPORT GIVEN TO JENNIFER HIGGINS, PT WILL BE TRANSFERRED TO ROOM 205. PT IS SITTING UP EATING DINNER WITH FAMILY AT BEDSIDE. PT V/S STABLE WILL CONTINUE TO MONITOR.
--- NOTE | 2019-04-23 17:45 | NUR ---
TRANSFER FROM DAYPATIENT RECEIVED PT IN SEMI AKERS'S POSITION, A&OX3, CALM COOPERATIVE AND DOES NOT APPEAR TO BE IN ANY DISTRESS NOR ANY NEURO DEFICITS PRESENT. PT DENIES PAIN, SOB, NAUSEA. LEFT SHOULDER DRESSING DRY, INTACT AND SECURED WITH ARM SLING. PT ON BEDREST UNTIL AM. CALL LIGHT WITHIN REACH, FAMILY AT BEDSIDE.
[2019-04-23] MEDS ORDERED: ATORVASTATIN CALCIUM 10 MG TABLET PO SCH (21:00)
[2019-04-23] MEDS ORDERED: INSULIN GLARGINE 100 UNITS/ML 10 ML VIAL SQ SCH (21:00)
[2019-04-23] MEDS: DOXYCYCLINE HYCLATE 100 MG TABLET PO SCH (21:17)
[2019-04-24] MEDS: LABETALOL HCL 200 MG TABLET PO SCH ×2 (02:34→10:00)
[2019-04-24] MEDS: SODIUM CHLORIDE 0.9% 1000ML 1,000 ML IV SCH (02:35)
[2019-04-24 03:12] VITALS: BP 147/80
[2019-04-24 05:15] LABS: BASOPHILS % (AUTO) 0.2 % (0.0-5.0); EOSINOPHILS % (AUTO) 2.3 % (0.0-8.0); HEMATOCRIT 31.9 % (42-54); LYMPHOCYTES % (AUTO) 13.6 % (21.0-51.0); MEAN CORPUSCULAR HEMOGLOBIN 29.8 pg (27.0-33.0); MEAN CORPUSCULAR HGB CONC 32.3 g/dL (32.0-36.0); MEAN CORPUSCULAR VOLUME 92.2 fL (79-99); MONOCYTES % (AUTO) 7.4 % (3.0-13.0); NEUTROPHILS % (AUTO) 75.8 % (40.0-77.0); PLATELET COUNT (AUTO) 141 K/uL (130-400); RED BLOOD CELL COUNT(AUTO) 3.46 MIL/uL (4.50-6.20); RED CELL DISTRIBUTION WIDTH 13.2 % (11.0-15.5); WHITE BLOOD COUNT (AUTO) 16.6 K/uL (4.8-10.8)
[2019-04-24 05:50] LABS: POTASSIUM 5.4 mmol/L (3.5-5.1)
[2019-04-24] MEDS: INSULIN HUMULIN R 100 UNIT/ML 3ML SQ SCH ×5 (06:47→12:37)
[2019-04-24 07:00] VITALS: BP 171/93
--- NOTE | 2019-04-24 08:00 | NUR ---
AM NOTE Awake, alert, and oriented x3. Denies any pain. Left arm sling i place, dressing to left upper chest dry and intact. AVpaced in 70s. Instructed on use of call light for any assistance, verbalized understanding.
[2019-04-24] MEDS ORDERED: CLOPIDOGREL BISULFATE 75 MG TAB PO SCH (09:00)
[2019-04-24] MEDS ORDERED: MEGESTROL 400 MG/10 ML UDCUP PO SCH (09:00)
[2019-04-24] MEDS ORDERED: LORATADINE 10 MG TABLET PO SCH (09:00)
[2019-04-24] MEDS ORDERED: TAMSULOSIN HCL 0.4 MG CAP.ER.24H PO SCH (09:00)
[2019-04-24] MEDS: DOXYCYCLINE HYCLATE 100 MG TABLET PO SCH (09:57)
[2019-04-24 11:00] VITALS: BP 152/69
--- NOTE | 2019-04-24 16:29 | NUR ---
DC Pt discharged home as ordered by . Dr. Brown rounded, instructions given n how to take care of pt at home. Daughter at bedside.
[2019-04-30] MEDS ORDERED: **HM**Cholecalciferol (Vitamin D3) (Vitamin D) 50,000 UNIT PO SCH (09:00)
== END 2019-04-24 16:29 | disposition home or self-care (01) ==
LOC: DAH 06:04 → DAHIP 06:05 → DAH 06:05 → 2AH 17:31
PROVIDERS: ADMIT Internal Medicine Pulmonary Disease; ATTEND Internal Medicine Pulmonary Disease
DX: I25.5 Ischemic cardiomyopathy (principal); I25.10 Atherosclerotic heart disease of native coronary artery without angina pectoris; I42.8 Other cardiomyopathies; I12.9 Hypertensive chronic kidney disease with stage 1 through stage 4 chronic kidney disease, or unspecified chronic kidney disease; E11.22 Type 2 diabetes mellitus with diabetic chronic kidney disease; E11.51 Type 2 diabetes mellitus with diabetic peripheral angiopathy without gangrene; N18.3 Chronic kidney disease, stage 3 (moderate); N40.0 Benign prostatic hyperplasia without lower urinary tract symptoms; E87.5 Hyperkalemia; Z86.73 Personal history of transient ischemic attack (TIA), and cerebral infarction without residual deficits; Z95.0 Presence of cardiac pacemaker; Z79.4 Long term (current) use of insulin; Z79.899 Other long term (current) drug therapy; Z79.02 Long term (current) use of antithrombotics/antiplatelets
CPT/HCPCS: 33225; 33229; 36415 ×2; 71046; 80048 ×2; 82948 ×7; 85025 ×2; 85610; 85730; 93005; 96372 ×2; A4215; A4216; A4221; A4222; A4223 ×3; A4606; A4663; C1769 ×2; C1894; C1900; C2621; G0378 ×30; J0360; J1815; J2175 ×2; J2250 ×2; J3370 ×2; J3490 ×3; J7030 ×2; Q9967; 99156; 99157

== ENCOUNTER 2020-05-07 17:20 | Emergency (ER) | payer MEDICARE ==
[2020-05-07 17:56] LABS: BASOPHILS % (AUTO) 0.3 % (0.0-5.0); EOSINOPHILS % (AUTO) 1.3 % (0.0-8.0); HEMATOCRIT 37.8 % (42-54); LYMPHOCYTES % (AUTO) 20.2 % (21.0-51.0); MEAN CORPUSCULAR HEMOGLOBIN 28.8 pg (27.0-33.0); MEAN CORPUSCULAR HGB CONC 32.8 g/dL (32.0-36.0); MEAN CORPUSCULAR VOLUME 87.7 fL (79-99); MONOCYTES % (AUTO) 4.7 % (3.0-13.0); NEUTROPHILS % (AUTO) 73.3 % (40.0-77.0); PLATELET COUNT (AUTO) 242 K/uL (130-400); RED BLOOD CELL COUNT(AUTO) 4.31 MIL/uL (4.50-6.20); RED CELL DISTRIBUTION WIDTH 12.3 % (11.0-15.5); WHITE BLOOD COUNT (AUTO) 12.6 K/uL (4.8-10.8)
[2020-05-07 18:04] LABS: CARBON DIOXIDE 27 mmol/L (21-32); CHLORIDE 102 mmol/L (101-111); CREATININE 2.3 mg/dL (0.5-1.5); GLOMERULAR FILTR. RATE CALC 29 mL/min (>60); GLUCOSE,RANDOM 263 mg/dL (70-105); POTASSIUM 4.4 mmol/L (3.5-5.1); SODIUM SERUM 140 mmol/L (136-145); UREA NITROGEN, BLOOD 44 mg/dL (7-18)
[2020-05-07 18:06] LABS: INR 1.04 (0.85-1.15); PROTHROMBIN TIME 11.1 SEC (9.6-11.6)
[2020-05-07 18:07] LABS: PARTIAL THROMBOPLASTIN TIME 37.4 SEC (26.3-35.5)
[2020-05-07 18:09] LABS: ALANINE AMINOTRANSFERASE 20 U/L (12-78); ALBUMIN 3.7 g/dL (3.5-5.0); ASPARTATE AMINOTRANSFERASE 16 U/L (10-37); BILIRUBIN,TOTAL 0.4 mg/dL (0.2-1.0); CREATINE KINASE, TOTAL 59 U/L (21-232); TOTAL PROTEIN, SERUM 7.1 g/dL (6.0-8.3)
[2020-05-07 18:14] LABS: B-TYPE NATRIURETIC PEPTIDE 225 pg/mL (0-100)
[2020-05-07 18:22] LABS: AMMONIA < 3 umol/L (11-32)
[2020-05-07 18:36] LABS: RAPID GROUP A STREP NEGATIVE (NEGATIVE)
[2020-05-07 18:41] LABS: BILIRUBIN,URINE Negative (NEGATIVE); COLOR,URINE Yellow (YELLOW); GLUCOSE, URINE (UA) TRACE mg/dL (NEGATIVE); KETONES,URINE Negative (NEGATIVE); LEUKOCYTE ESTERASE ,URINE Negative (NEGATIVE); NITRATE,URINE Negative (NEGATIVE); OCCULT BLOOD,URINE Negative (NEGATIVE); PROTEIN,URINE POS 2+ mg/dL (NEGATIVE); UROBILINOGEN,URINE 0.2 mg/dL (0.2-1.0)
[2020-05-07 18:42] LABS: APPEARANCE,URINE CLEAR (CLEAR)
[2020-05-07 18:52] LABS: BACTERIA,URINE Rare /HPF (None Seen); RBC,URINE 0-1 /HPF (0-1); SQUAMOUS EPITHELIAL CELL,UR Rare /HPF (0-2); WBC,URINE 0-1 /HPF (0-1)
== END 2020-05-07 21:06 | disposition left against medical advice (07) ==
LOC: EDH 17:20
DX: N28.9 Disorder of kidney and ureter, unspecified (principal); I65.23 Occlusion and stenosis of bilateral carotid arteries; R01.1 Cardiac murmur, unspecified; R53.1 Weakness; Z20.822 Contact with and (suspected) exposure to COVID-19; E11.9 Type 2 diabetes mellitus without complications; I10 Essential (primary) hypertension; Z88.0 Allergy status to penicillin
CPT/HCPCS: 36415; 71045; 80053; 81001; 82140; 82550; 83605; 83880; 84145; 84484; 85025; 85610; 85730; 87426; 87804 ×2; 87880; 93005; 93306; 93356; 93880; 99285; U0003

== ENCOUNTER → 2020-05-07 | Outpatient (CLI) | payer MEDICARE | END | disposition home or self-care (01) | LOC: SHCH 11:07 | PROVIDERS: ATTEND Internal Medicine Cardiovascular Disease | DX: R01.1 Cardiac murmur, unspecified (principal); I65.23 Occlusion and stenosis of bilateral carotid arteries | CPT/HCPCS: 93306; 93356; 93880 ==